=== PATIENT | female | born 1965 | race Caucasian/White ===

== ENCOUNTER 2017-11-03 08:14 | Emergency (ER) | payer OTHER ==
[~2017-11-03] VITALS: Ht 170.2 cm; Wt 115.9 kg
[~2017-11-03 08:14] MED LIST: AZO MENOPAUSE1 X; CARDI-OMEGA1000 MG PO; METFORMIN500 MG PO; NORCO 325 MG-51 TAB PO; OMEPRAZOLE D/R20 MG PO; PRAVASTATIN40 MG PO; SYNTHROID0.137 MG PO; VITAMIN C500 MG PO
[2017-11-03 08:16] VITALS: TEMP 98.1
[2017-11-03 08:32] LABS: BASO # 0.1 (0.0-0.2); BASO % 0.8 % (0.0-2.0); EOS # 0.2 (0.0-0.7); EOS % 2.4 % (0-4.0); GRAN # 3.9 (1.4-6.5); GRAN % 58.9 % (42.2-75.2); HEMATOCRIT 39.2 % (37.0-47.0); MEAN CELL VOLUME 90 fl (80.0-100.0); MEAN CORPUSCULAR HEMOGLOBIN 30 pg (27.0-31.0); MEAN CORPUSCULAR HGB CONC 33 g/dl (33.0-37.0); MEAN PLATELET VOLUME 10.6 fl (7.4-10.4); MONO # 0.4 (0.1-0.6); MONO % 6.3 % (1.7-9.3); PLATELET COUNT 268 K/mm3 (130-400); RED BLOOD COUNT 4.34 M/mm3 (4.10-5.30); REDCELL DISTRIBUTION WIDTH-CV 12.7 % (11.5-14.5)
[2017-11-03] MEDS ORDERED: PRILOSEC 20MG20 MG PO (08:32)
[2017-11-03] MEDS ORDERED: LEXAPRO 10MG10 MG PO (08:32)
[2017-11-03] MEDS ORDERED: GLUCOPHAGE XR500 M1 PO (08:32)
[2017-11-03 08:44] LABS: COLLECTION METHOD CLEAN CATCH
[2017-11-03 08:46] LABS: BILIRUBIN,TOTAL 0.7 mg/dL (0.0-1.0); C-REACTIVE PROTEIN 0.8 mg/dL (0.0-0.9); CALCIUM 9.1 mg/dL (8.4-10.2); CREATININE, serum 0.72 mg/dL (0.52-1.25); POTASSIUM 4.4 mmol/L (3.4-5.0); TOTAL PROTEIN 8.3 gm/dL (6.4-8.2)
[2017-11-03 09:07] LABS: MUCOUS Present /lpf; PH 5 (5-8); URINE APPEARANCE Hazy; URINE BACTERIA Moderate /hpf; URINE BILIRUBIN Negative (NEGATIVE); URINE COLOR Amber; URINE GLUCOSE Negative (NEGATIVE); URINE KETONE Negative (NEGATIVE); URINE PROTEIN(semi-quant) Negative (NEGATIVE); URINE RBC >50 /hpf; URINE UROBILINOGEN Negative (NEGATIVE)
[2017-11-03 09:08] LABS: URINE BLOOD 2+ (NEGATIVE); URINE LEUKOCYTE ESTERASE Negative (NEGATIVE); URINE NITRATE Positive (NEGATIVE)
[2017-11-03] MEDS ORDERED: NORCO 325 MG-51 TAB PO (12:17)
[2017-11-03 12:41] VITALS: BP 110/61; PULSE 70
[2017-11-03] MEDS ORDERED: CEFTIN500 MG PO (12:58)
== END 2017-11-03 12:44 | disposition home or self-care (01) ==
LOC: COL.ER 08:14
PROVIDERS: Nurse Practitioner
DX: N20.1 Calculus of ureter (principal); E11.9 Type 2 diabetes mellitus without complications; F32.9 Major depressive disorder, single episode, unspecified; K21.9 Gastro-esophageal reflux disease without esophagitis; Z90.710 Acquired absence of both cervix and uterus; Z79.84 Long term (current) use of oral hypoglycemic drugs; Z88.0 Allergy status to penicillin
CPT/HCPCS: J0696; J1170; J1885; J2270; J2405; J7030

== ENCOUNTER 2017-11-20 10:13 | Emergency (ER) | payer OTHER ==
[~2017-11-20] VITALS: Ht 170.2 cm; Wt 118.2 kg
[~2017-11-20 10:13] MED LIST changes: +CEFTIN500 MG PO; +GLUCOPHAGE XR500 M1 PO; +LEXAPRO 10MG10 MG PO; +PRILOSEC 20MG20 MG PO
[2017-11-20 10:15] VITALS: BP 140/68; TEMP 98.1
[2017-11-20] MEDS ORDERED: SYNTHROID 0.10.15 MG PO (10:23)
[2017-11-20 11:50] VITALS: PULSE 76
== END 2017-11-20 11:50 | disposition home or self-care (01) ==
LOC: COL.ER 10:13
DX: M25.774 Osteophyte, right foot (principal); D16.31 Benign neoplasm of short bones of right lower limb; E11.9 Type 2 diabetes mellitus without complications; I10 Essential (primary) hypertension; Z90.710 Acquired absence of both cervix and uterus; Z90.89 Acquired absence of other organs; Z79.84 Long term (current) use of oral hypoglycemic drugs

== ENCOUNTER → 2018-01-03 | Outpatient (CLI) | payer OTHER ==
[~2018-01-03] MED LIST changes: +SYNTHROID 0.10.15 MG PO
== END ==
LOC: MC.RAD 09:35
DX: Z12.31 Encounter for screening mammogram for malignant neoplasm of breast (principal)

== ENCOUNTER 2018-04-21 08:32 | Day surgery (SDC) | payer OTHER ==
[~2018-04-21] VITALS: Ht 167.6 cm; Wt 116.4 kg
[2018-04-21 09:06] VITALS: BP 148/89; PULSE 89; TEMP 98.2
[2018-04-21 10:15] VITALS: BP 120/79; PULSE 91
[2018-04-21 10:30] VITALS: BP 109/85; PULSE 100
[2018-04-21 10:45] VITALS: BP 116/74; PULSE 78
== END 2018-04-21 11:00 | disposition home or self-care (01) ==
LOC: SDCO 08:32
DX: Z12.11 Encounter for screening for malignant neoplasm of colon (principal); D12.2 Benign neoplasm of ascending colon; E11.9 Type 2 diabetes mellitus without complications; E03.9 Hypothyroidism, unspecified; Z91.012 Allergy to eggs; Z88.0 Allergy status to penicillin
CPT/HCPCS: J2250; J3010; J7030

== ENCOUNTER → 2019-12-26 | Outpatient (CLI) | payer OTHER | LOC: COL.RAD 07:51 | DX: K76.0 Fatty (change of) liver, not elsewhere classified (principal); K76.89 Other specified diseases of liver ==

== ENCOUNTER → 2020-01-04 | Outpatient (CLI) | payer OTHER | LOC: COL.RAD 07:42 | DX: R11.2 Nausea with vomiting, unspecified (principal); R19.4 Change in bowel habit; R10.9 Unspecified abdominal pain | CPT/HCPCS: A9537; J2805 ==

== ENCOUNTER 2021-10-02 09:00 | Outpatient (RCR) | payer BC, OTHER | END 2021-10-03 | disposition home or self-care (01) | LOC: PT.GENESIS | DX: M25.512 Pain in left shoulder (principal) ==

== ENCOUNTER → 2021-10-12 | Outpatient (CLI) | payer OTHER | LOC: MC.RAD 08:23 | DX: Z12.31 Encounter for screening mammogram for malignant neoplasm of breast (principal) ==

== ENCOUNTER 2021-10-30 08:30 | Outpatient (RCR) | payer BC, OTHER | END 2021-11-03 13:10 | disposition still patient (30) | LOC: PT.GENESIS 08:30 | DX: M25.512 Pain in left shoulder (principal) ==

== ENCOUNTER 2022-07-15 10:56 | Day surgery (SDC) | payer BC, OTHER ==
[2022-07-15] VITALS (11 sets, daily range): BP systolic 103–130; BP diastolic 55–80; PULSE 70–90; TEMP 97.5–98.3
[~2022-07-15] VITALS: Ht 167.6 cm; Wt 104.8 kg
[2022-07-15] MEDS ORDERED: EUTHYROX137 MCG PO (11:32)
[2022-07-15] MEDS ORDERED: OZEMPIC1 MG/0.71 SQ (11:32)
--- NOTE | 2022-07-15 15:15 | NUR ---
Patient arrived to the unit via bed from pacu at 1450. Patient alert and oriented. Lung CTA, Bowel sounds active, pulses papable. Patient denies discomfort at this time. Patient oriented to room. Family at the bedside.
--- NOTE | 2022-07-15 15:36 | NUR ---
Assited patient to the bathroom to void. Patient states she voided medium amoun of clear yellow urine and had small soft bowel movement. Patient asssted back to bed. 1 can of spirite and saltine crackers offered.
--- NOTE | 2022-07-15 17:05 | NUR ---
1253 Pt to isolation bay, monitors attached and alarms set. VSS on room air. Pt alert and oriented x3 and denies any pain or nausea. Warm blanket provided for comfort. Pt monitored and held in isolation bay until surgical floor room available. 1410 Pt alert and oriented, denies any needs at this time. VSS. brought to bedside. 1425 VSS on room air. Tolerating food and drink well. 1440 VSS on room air. Pt up to toilet, able to void without difficulty. Denies any needs at this time. Report called to EDITH Gomez. 1450 Pt transferred via cart to surgical room 342, transfers self to bed without difficulty. VSS. Bedside hand-off to EDITH Gomez. and belongings in room.
--- NOTE | 2022-07-15 21:00 | NUR ---
Patient A/O, VSS, head to toe assessment done, denies pain or discomfort, with IV infusing well on right hand, denies further needs, call light and personal items within reach, will continue to monitor.
--- NOTE | 2022-07-16 01:11 | NUR ---
Patient called out with complains of pain on her bladder and nausea, oxycodone, levsin and zofran were given, will continue to monitor.
[2022-07-16 03:40] VITALS: BP 115/64; PULSE 56; TEMP 97.9
--- NOTE | 2022-07-16 06:26 | NUR ---
Patient complained of bladder spasm again, levsin given, she reports the levsin did work, voided 4 times overnight, will report to dayshift nurse.
[2022-07-16 07:06] LABS: HEMOGLOBIN 10.9 g/dl (12.5-16.0); MEAN CELL VOLUME 88 fl (80.0-100.0); MEAN CORPUSCULAR HEMOGLOBIN 30 pg (27-31); MEAN CORPUSCULAR HGB CONC 34 g/dl (33.0-37.0); MEAN PLATELET VOLUME 12.2 fl (7.4-10.4); PLATELET COUNT 160 K/mm3 (130-400); RED BLOOD COUNT 3.65 M/mm3 (4.10-5.30); REDCELL DISTRIBUTION WIDTH-CV 13.2 % (11.5-14.5)
[2022-07-16 07:12] LABS: HEMATOCRIT 32.2 % (37.0-47.0)
[2022-07-16 07:15] VITALS: BP 116/67; PULSE 57; TEMP 97.8
[2022-07-16 07:21] LABS: CALCIUM 9.4 mg/dL (8.4-10.2); CREATININE, serum 1.72 mg/dL (0.57-1.11); POTASSIUM 4.2 mmol/L (3.5-4.5)
--- NOTE | 2022-07-16 07:51 | NUR ---
0742 This student nurse receives report from primary nurse Karina RN at this time. Discussed plan care coordination with day shift primary nurse Meagan SHARMA. 0632 Pt resting in bed. Assessment is complete (see Shift Assessment). Pt c/o 2/10 pain in urethra. Call light within reach. Will continue to monitor.
--- NOTE | 2022-07-16 08:30 | NUR ---
Pt doing well this morning. Some pain complaints, reports it is tolerable. Pt is getting up independently in her room. No needs/questions, will continue to monitor
--- NOTE | 2022-07-16 08:54 | NUR ---
Initial visit; Patient thanked [employer] for looking in on her and offering God's blessings. Patient appeared to be doing well though didn't want to visit.
--- NOTE | 2022-07-16 09:47 | NUR ---
0915 Pt c/o 09/13 pain. Requests pain medications. This student nurse notified primary nurse Meagan SHARMA at this time. Call light within reach, will continue to monitor.
--- NOTE | 2022-07-16 10:20 | NUR ---
Pt starting to have some complaints of pain to her right back/flank. PRN pain medication given. Pt denies any other needs
[2022-07-16 11:06] VITALS: BP 113/73; PULSE 57; TEMP 97.7
[2022-07-16] MEDS ORDERED: ROXICODONE 55 MG/TAB PO (12:12)
[2022-07-16] MEDS ORDERED: OMNICEF 300MG300 MG PO (12:12)
[2022-07-16] MEDS ORDERED: FLOMAX 0.40.4 MG/CAP PO (12:12)
--- NOTE | 2022-07-16 12:30 | NUR ---
Dr Han in to see pt, reviewed discharge instructions, all questions answered.
--- NOTE | 2022-07-16 13:39 | NUR ---
Member Of [employer] met with patient to discuss discharge planning. Patient lives in [place] with her , Joseph (ph#[phone]) and sees Dr. Still for primary care. Patient obtains medications from [facility] with no difficulties. Patient does not use any DME and is independent with ADLS. Patient would like to complete [facility]PO[facility] and designate her , Joseph. DANA assisted patient in completing form. DANA and RN-Anjelica GUTIERREZ provided witness signature. DANA placed copy in chart and provided original and copies to patient. Discharge Plan: Home
== END 2022-07-16 12:50 | disposition home or self-care (01) ==
LOC: SDCO 10:56 → SURG 15:02 → SDCO 07-16 12:50
PROVIDERS: Urology
DX: N20.1 Calculus of ureter (principal); N39.0 Urinary tract infection, site not specified; K21.9 Gastro-esophageal reflux disease without esophagitis; E11.9 Type 2 diabetes mellitus without complications; N19 Unspecified kidney failure; Z87.891 Personal history of nicotine dependence
CPT/HCPCS: OP; C1769; C2617; J0690; J0696; J1100; J1885; J2405; J2704; J3010; J7120

== ENCOUNTER → 2023-03-17 | Outpatient (CLI) | payer BC ==
[~2023-03-17] MED LIST changes: +EUTHYROX137 MCG PO; +FLOMAX 0.40.4 MG/CAP PO; +OMNICEF 300MG300 MG PO; +OZEMPIC1 MG/0.71 SQ; +ROXICODONE 55 MG/TAB PO
== END ==
LOC: COL.RAD 03-16 07:03
DX: K76.0 Fatty (change of) liver, not elsewhere classified (principal); K76.89 Other specified diseases of liver
CPT/HCPCS: Q9967